=== PATIENT | female | born 1995 | race Caucasian/White ===

== ENCOUNTER → 2016-05-15 | Outpatient (CLI) | payer OTHER ==
[~2016-05-15] MED LIST: ACNE MED; ZFRODT4 SL
--- NOTE | 2016-05-15 14:12 | DIAGNOSTIC IMAGING REPORT ---
ULTRASOUND OF THE PELVIS CLINICAL HISTORY: Irregular menses. COMPARISON STUDY: Pelvic ultrasound dated 09/30/2015. TECHNIQUE: Real-time, grayscale, and color flow sonography of the pelvis is performed both transabdominally and endovaginally. Images are reviewed in the transverse and longitudinal planes. FINDINGS: Uterus: The uterus is normal in size and echotexture, measuring 9.3 x 3.0 x 4.6 cm. Small Nabothian cysts are incidentally noted in the cervix. Endometrium: The endometrium is normal in appearance, and the endometrial stripe is normal in thickness measuring up to 0.7 cm. Ovaries: The ovaries are normal in size and morphology. The right ovary measures 2.8 x 1.2 x 2.0 cm and the left ovary measures 2.8 x 1.5 x 2.6 cm. Normal Doppler waveforms are shown within both ovaries. Pelvis: There is trace free fluid in the cul-de-sac. No concerning adnexal lesion is seen. IMPRESSION: 1. Unremarkable sonographic assessment of the uterus and ovaries. 2. There is trace and likely physiologic free fluid in the cul-de-sac. Electronically signed by: Fred Hale M.D. 05/15/2016 2:11 PM Dictated Date/Time: 05/15/2016 2:10 PM
== END | disposition home or self-care (01) ==
LOC: C.ULTR 12:12
PROVIDERS: ATTEND Nurse Practitioner Family
DX: N92.6 Irregular menstruation, unspecified (principal)

== ENCOUNTER → 2017-04-01 | Outpatient (CLI) | payer OTHER | END | disposition home or self-care (01) | LOC: C.PAPS 09:27 | PROVIDERS: ATTEND Obstetrics & Gynecology | DX: Z12.4 Encounter for screening for malignant neoplasm of cervix (principal); Z11.51 Encounter for screening for human papillomavirus (HPV) ==

== ENCOUNTER → 2017-04-01 | Outpatient (CLI) | payer OTHER ==
[2017-04-06 07:05] LABS: CHLAMYDIA TRACH RNA*** NOT DETECTED (NOT DETECTED); GC (NEIS GONORRHOEAE)RNA** NOT DETECTED (NOT DETECTED)
== END | disposition home or self-care (01) ==
LOC: C.LABSPEC 17:56
PROVIDERS: ATTEND Obstetrics & Gynecology
DX: Z12.4 Encounter for screening for malignant neoplasm of cervix (principal)